=== PATIENT | female | born 1995 | race Caucasian/White ===

== ENCOUNTER → 2018-04-03 | Outpatient (CLI) | payer BC ==
[~2018-04-03] MED LIST: ACET325; ACET325 PO; ALBU90OI INH; AMOX500 PO; AMOX50SU PO; CEFU250 PO; CODACE30 PO; CODGUAEL PO; EPIN.3I IM; FAMO20 PO; GUAI600T33 PO; LORA10ER PO; PRED20 PO; PROCODE120 PO; RXCODACET PO; SULTRIDS PO
== END ==
LOC: LAB 11:52 → LAB SHORT 11:52
PROVIDERS: Registered Nurse Community Health
DX: Z12.4 Encounter for screening for malignant neoplasm of cervix (principal)
CPT/HCPCS: G0123